=== PATIENT | male | born 1995 | race Caucasian/White ===

== ENCOUNTER 2021-11-15 08:17 | Emergency (ER) | payer OTHER ==
[2021-11-15 08:19] VITALS: BP 125/69; PULSE 63; TEMP 98.6; BMI 27.3
[2021-11-16 11:07] LABS: SARS-CoV-2 NAA Not Detected (Not Detected)
== END 2021-11-15 09:06 | disposition home or self-care (01) ==
LOC: JER 08:17
DX: M79.10 Myalgia, unspecified site (principal); R53.81 Other malaise
CPT/HCPCS: 87804; 99283-25; C9803; U0003; U0005

== ENCOUNTER 2022-06-19 21:06 | Emergency (ER) | payer OTHER ==
[2022-06-19 21:38] VITALS: BP 118/73; PULSE 77; RESP 20; TEMP 98.3; BMI 26.6
== END 2022-06-19 23:35 | disposition home or self-care (01) ==
LOC: JER 21:06
DX: U07.1 COVID-19 (principal)
CPT/HCPCS: 0241U-QW; 99283-25

== ENCOUNTER 2022-09-17 19:05 | Emergency (ER) | payer OTHER ==
[2022-09-17 19:25] VITALS: BP 135/78; PULSE 83; RESP 18; TEMP 98.1; BMI 26.6
== END 2022-09-17 21:41 | disposition home or self-care (01) ==
LOC: JER 19:05
DX: R07.9 Chest pain, unspecified (principal)
CPT/HCPCS: 71046-TC-FY; 93005; 93010; 99284-25

== ENCOUNTER 2024-05-08 20:33 | Emergency (ER) | payer OTHER ==
[2024-05-08 20:40] VITALS: BP 130/70; PULSE 100; RESP 18; TEMP 98.8; BMI 29.2
[2024-05-08] MEDS ORDERED: LIDOCAINE PATCH REMOVAL MC SCH (22:00)
[2024-05-08] MEDS ORDERED: LIDOCAINE 4% PATCH TP ONE (22:14)
[2024-05-08] MEDS ORDERED: IBUPROFEN 600 MG TABLET (FP) PO ONE (22:14)
[2024-05-08] MEDS: LIDOCAINE 5% TOPICAL PATCH TP ONE (22:20)
[2024-05-08] MEDS: IBUPROFEN 600 MG TABLET (FP) PO ONE (22:21)
[2024-05-08] MEDS: MAG HYDROX/ALH/SMC/DPHA/LIDO 240 ML MOUTHWASH MM ONE (23:08)
[2024-05-09] MEDS ORDERED: MAG HYDROX/ALH/SMC/DPHA/LIDO 240 ML MOUTHWASH MM SCH
== END 2024-05-08 23:08 | disposition home or self-care (01) ==
LOC: JERFT 20:33
DX: B97.11 Coxsackievirus as the cause of diseases classified elsewhere (principal); R21 Rash and other nonspecific skin eruption
CPT/HCPCS: 99283-25

== ENCOUNTER 2024-11-18 06:21 | Day surgery (SDC) | payer OTHER ==
[2024-11-08 13:47] VITALS: BMI 28.1
[2024-11-18] MEDS ORDERED: SUCCINYLCHOLINE CHLORIDE 200 MG/10 ML SYRINGE ONE (07:14)
[2024-11-18] MEDS ORDERED: VANCOMYCIN 1,000 MG VIAL (RESTRICTED TO ID ONLY) ONE (07:15)
[2024-11-18] MEDS ORDERED: METOCLOPRAMIDE HCL INJECTION 10 MG/2 ML VIAL ONE (07:15)
[2024-11-18] MEDS ORDERED: ONDANSETRON 4 MG/2 ML VIAL ONE (07:15)
[2024-11-18] MEDS ORDERED: DEXAMETHASONE SOD PHOSPHATE 4 MG/1 ML VIAL ONE (07:15)
[2024-11-18] MEDS ORDERED: ceFAZolin SODIUM 1 GM VIAL ONE (07:15)
[2024-11-18] MEDS ORDERED: PROPOFOL 40 ML ONE (07:18)
[2024-11-18] MEDS ORDERED: MIDAZOLAM HCL 2 MG/2 ML SINGLE DOSE VIAL ONE (07:19)
[2024-11-18] MEDS ORDERED: GLYCOPYRROLATE 0.2 MG/1 ML VIAL ONE (07:20)
[2024-11-18] MEDS ORDERED: BUPIVACAINE LIPOSOME/PF (EXPAREL) 266 MG/20 ML VIAL ONE (07:25)
[2024-11-18] MEDS ORDERED: BUPIVACAINE HCL/PF 0.5% (5MG/ML) 10 ML VIAL ONE (07:25)
[2024-11-18] MEDS ORDERED: ACETAMINOPHEN INJECTION 100 ML ONE (07:25)
[2024-11-18] MEDS ORDERED: BUPIVACAINE HCL/EPINEPHRINE/PF 30 ML VIAL IJ ONE (07:36)
[2024-11-18] MEDS ORDERED: EPINEPHrine 1:1,000 1,000 MCG/ML ML ONE (07:36)
[2024-11-18] MEDS ORDERED: PHENYLEPHRINE HCL 10 MG/1 ML SINGLE DOSE VIAL ONE (08:29)
[2024-11-18] MEDS ORDERED: PROPOFOL 20 ML ONE (08:29)
[2024-11-18] MEDS: BUPIVACAINE 0.25% /EPI 1:200,000 10 ML VIAL NR ONE (08:35)
[2024-11-18] MEDS ORDERED: ONDANSETRON 4 MG/2 ML VIAL IVPUSH PRN (08:43)
[2024-11-18] MEDS ORDERED: LACTATED RINGERS SOLUTION 1,000 ML IV SCH (08:45)
[2024-11-18 11:18] VITALS: TEMP 97.1
[2024-11-18 12:03] VITALS: BP 118/75; PULSE 74; RESP 19
== END 2024-11-18 12:05 | disposition home or self-care (01) ==
LOC: FASU 06:21
PROVIDERS: ATTEND Orthopaedic Surgery
PROC: 0LS44ZZ Reposition Left Upper Arm Tendon, Percutaneous Endoscopic Approach (ICD-10-PCS; principal; 2024-11-18 08:35)
PROC: 0RBK4ZZ Excision of Left Shoulder Joint, Percutaneous Endoscopic Approach (ICD-10-PCS; 2024-11-18 08:35)
DX: S46.012D Strain of muscle(s) and tendon(s) of the rotator cuff of left shoulder, subsequent encounter (principal); M75.22 Bicipital tendinitis, left shoulder; M75.52 Bursitis of left shoulder; M65.811 Other synovitis and tenosynovitis, right shoulder; S43.432D Superior glenoid labrum lesion of left shoulder, subsequent encounter; M75.02 Adhesive capsulitis of left shoulder; X58.XXXD Exposure to other specified factors, subsequent encounter
CPT/HCPCS: 94760; C1713; J0131